=== PATIENT | male | born 1985 | race Caucasian/White ===

== ENCOUNTER 2018-12-03 13:08 | Emergency (ER) | payer MEDICAID ==
[~2018-12-03] VITALS: Ht 170.2 cm; Wt 74.8 kg
--- NOTE | 2018-12-03 14:46 | NUR ---
Patient discharged to home in stable conditon. Written and verbal after care instructions given. Patient verbalizes understanding of instructions.PT WALKS IN STEADY GAIT.
== END 2018-12-03 14:47 | disposition home or self-care (01) ==
LOC: ER 13:08
DX: S62.612A Displaced fracture of proximal phalanx of right middle finger, initial encounter for closed fracture (principal); W18.30XA Fall on same level, unspecified, initial encounter; Y93.89 Activity, other specified; Y92.89 Other specified places as the place of occurrence of the external cause; Y99.8 Other external cause status
CPT/HCPCS: 73130; A4663

== ENCOUNTER 2019-06-23 15:55 | Emergency (ER) | payer SELFPAY ==
[~2019-06-23] VITALS: Ht 170.2 cm; Wt 74.8 kg
[2019-06-23 16:20] LABS: *BILIRUBIN,URIN NEGATIVE (NEGATIVE); *CLARITY,URINE SLIGHTLY CLOUDY (CLEAR); *KETONES,URINE NEGATIVE (NEGATIVE); *UROBILINOGEN,URINE 0.2 E.U./dl (NORMAL); LEUKOCYTE ESTERASE ,URINE NEGATIVE (NEGATIVE); NITRITE, URINE NEGATIVE (NEGATIVE); PH,URINE 8.5 (5.0-8.0); UGLUCOSE NEGATIVE (NEGATIVE)
[2019-06-23] MEDS ORDERED: KETOROLAC TROMETHAMINE 30 MG INJ ONE (16:25)
[2019-06-23] MEDS ORDERED: ONDANSETRON 4 MG/2 ML VIAL ONE ×2 (16:25→17:54)
[2019-06-23] MEDS ORDERED: MORPHINE SULFATE 4 MG/1 ML DISP.SYRIN ONE ×2 (16:25→17:54)
[2019-06-23 16:29] LABS: *BLOOD, URINE TRACE (NEGATIVE); *COLOR,URINE YELLOW (YELLOW)
[2019-06-23 16:30] LABS: SQUAMOUS EPITHELIAL CELL,UR FEW /HPF (NONE SEEN); URINE AMORPHOUS PHOSPHATES MANY /HPF; WBC,URINE 0-3 /HPF (0-3)
[2019-06-23] MEDS ORDERED: MORPHINE SULFATE 4 MG/1 ML DISP.SYRIN IV ONE ×2 (16:30→18:00)
[2019-06-23] MEDS ORDERED: ONDANSETRON 4 MG/2 ML VIAL IV ONE ×2 (16:30→18:00)
[2019-06-23] MEDS ORDERED: IV NORMAL SALINE 1000 ML BAG IV ONE ×2 (16:30→18:00)
[2019-06-23] MEDS ORDERED: KETOROLAC TROMETHAMINE 15 MG INJ IVP ONE (16:30)
[2019-06-23 16:38] LABS: BASOPHILS % (AUTO) 0.7 % (0.0-2.0); CREATININE 1.2 mg/dL (0.6-1.3); EOSINOPHILS # (AUTO) 0.2 K/uL (0.0-0.7); EOSINOPHILS % (AUTO) 3.6 % (0.0-7.0); HEMATOCRIT 36.7 % (36.7-47.1); HEMOGLOBIN 11.5 g/dL (12.5-16.3); LYMPHOCYTES % (AUTO) 33.5 % (20.5-51.5); MEAN CORPUSCULAR HGB CONC 31 g/dL (32.5-36.3); MEAN CORPUSCULAR VOLUME 60.7 fL (73.0-96.2); MONOCYTES # (AUTO) 0.6 K/uL (2.0-10.0); MONOCYTES % (AUTO) 9.7 % (0.0-11.0); NEUTROPHILS # (AUTO) 3.1 K/uL (1.8-8.9); NEUTROPHILS % (AUTO) 52.5 % (38.5-71.5); PLATELET COUNT (AUTO) 337 K/uL (152-348); POTASSIUM 3.9 mmol/L (3.5-5.1); RED BLOOD CELL COUNT(AUTO) 6.05 MIL/uL (4.06-5.63)
[2019-06-23 16:43] LABS: BILIRUBIN,DIRECT 0.1 mg/dL (0.0-0.2); BILIRUBIN,TOTAL 0.4 mg/dL (0.2-1.0); TOTAL PROTEIN, SERUM 7.2 g/dL (6.4-8.2)
[2019-06-23 16:52] LABS: LYMPHOCYTES % (MANUAL) 31 % (20-40); NEUTROPHILS % (MANUAL) 59 % (42-75)
[2019-06-23 16:53] LABS: EOSINOPHILS % (MANUAL) 2 % (0-8); MONOCYTES % (MANUAL) 8 % (2-10)
[2019-06-23] MEDS ORDERED: TAMSULOSIN HCL 0.4 MG CAP.SR.24H ONE (17:54)
[2019-06-23] MEDS ORDERED: TAMSULOSIN HCL 0.4 MG CAP.SR.24H PO ONE (18:00)
--- NOTE | 2019-06-23 18:45 | NUR ---
Patient discharged to home in stable conditon. Written and verbal after care instructions given. Patient verbalizes understanding of instructions.pt walks i nsteady gait. pt accompanied by friends. pt not driving.
[2019-06-23 18:52] VITALS: BP 131/69
== END 2019-06-23 18:54 | disposition home or self-care (01) ==
LOC: ER 15:58
DX: N23 Unspecified renal colic (principal)
CPT/HCPCS: 36415; 76770; 80048; 80076; 81000; 81001; 85007; 85025; 96374; 96375; 96376; 99284; J1885; J2270 ×2; J2405 ×2; 70030-TC; A4663; J7030